=== PATIENT | female | born 1965 | race Caucasian/White ===

== ENCOUNTER 2018-04-27 16:39 | Emergency (ER) | payer BC, OTHER ==
[~2018-04-27] VITALS: Ht 171.4 cm; Wt 92.7 kg
[~2018-04-27 16:39] MED LIST: LEVO125T5 PO; NAPR-514 PO; TRAM50TA PO
[2018-04-27] MEDS ORDERED: ASPIRIN 81 MG TAB.CHEW PO ONE (17:15)
[2018-04-27 17:30] LABS: BASO # 0.1 x10^3/uL (0.0-0.2); BASO % 1 % (0-3); EOS # 0.2 x10^3/uL (0.0-0.7); EOS % 3 % (0-3); HEMATOCRIT 41.9 % (36.0-47.0); HEMOGLOBIN 13.8 g/dL (12.0-15.5); LYMPH # 1.4 x10^3/uL (1.0-4.8); LYMPH % 22 % (24-48); MEAN CORPUSCULAR HEMOGLOBIN 28 pg (25-35); MEAN CORPUSCULAR HGB CONC 33 g/dL (31-37); MEAN CORPUSCULAR VOLUME 84 fL (79-100); MONO # 0.5 x10^3/uL (0.0-1.1); MONO % 9 % (0-9); NEUT # 4.1 x10^3uL (1.8-7.7); NEUT % 66 % (31-73); PLATELET COUNT 278 x10^3/uL (140-400); RED BLOOD COUNT 4.98 x10^6/uL (3.50-5.40); RED CELL DISTRIBUTION WIDTH 13.4 % (11.5-14.5); WHITE BLOOD COUNT 6.3 x10^3/uL (4.0-11.0)
--- NOTE | 2018-04-27 17:30 | PHYS DOC ---
Past History Past Medical History: Hypothyroid, Other Past Surgical History: , Other Alcohol Use: Rarely Drug Use: None Adult General Chief Complaint Chief Complaint: CHEST PAIN HPI HPI Patient is a 53 year old female who presents with complaining of sudden onset of chest pain at 1550 while she was sitting at her desk as a sharp pain and rated her pain 8/10. Patient complaining of shortness of breath, dizziness and near syncope and states the pain lasts about 5 minutes. Patient complaining of lower back pain after dissolving the chest pain as a mild pain and rated her pain 2-3. Patient states she had another episode of the same pain within her thyroid test was very abnormal and had inpatient hospitalization at [facility] for treatment of thyroid disease. Patient had family history of coronary artery disease and denies hypertension, dyslipidemia, diabetes mellitus , smoking, cardiac problem. Review of Systems Review of Systems Constitutional: Denies fever or chills [] Eyes: Denies change in visual acuity, redness, or eye pain [] HENT: Denies nasal congestion or sore throat [] Respiratory: Denies cough, reports shortness of breath [] Cardiovascular: No additional information not addressed in HPI [] GI: Denies abdominal pain, nausea, vomiting, bloody stools or diarrhea [] : Denies dysuria or hematuria [] Musculoskeletal: Denies back pain or joint pain [] Integument: Denies rash or skin lesions [] Neurologic: Denies headache, focal weakness or sensory changes [] Endocrine: Denies polyuria or polydipsia [] All other systems were reviewed and found to be within normal limits, except as documented in this note. Current Medications Current Medications Current Medications Medications (Trade) Dose Ordered Sig/[facility] Start Time Stop Time Status Last Admin Dose Admin Aspirin (Children'S Aspirin) 324 mg 1X ONCE 04/27/18 17:15 04/27/18 17:16 DC Allergies Allergies Allergies Coded Allergies Type Severity Reaction Last Updated Verified No Known Drug Allergies 07/02/15 No Physical Exam Physical Exam Constitutional: Well developed, well nourished, mild distress, non-toxic appearance. [] HENT: Normocephalic, atraumatic, oropharynx moist, no oral exudates, nose normal. [] Eyes: PERRLA, EOMI, conjunctiva normal, no discharge. [] Neck: Normal range of motion, no tenderness, supple, no stridor. [] Cardiovascular:Heart rate regular rhythm, no murmur [] Lungs & Thorax: Bilateral breath sounds clear to auscultation [] Abdomen: Bowel sounds normal, soft, no tenderness, no masses, no pulsatile masses. [] Skin: Warm, dry, no erythema, no rash. [] Back: No tenderness, no CVA tenderness. [] Extremities: No tenderness, no cyanosis, no clubbing, ROM intact, no edema. [] Neurologic: Alert and oriented X 3, normal motor function, normal sensory function, no focal deficits noted. [] Psychologic: Affect normal, judgement normal, mood normal. [] Current Patient Data Vital Signs Vital Signs Date Time Temp Pulse Resp B/P (MAP) Pulse Ox O2 Delivery O2 Flow Rate FiO2 04/27/18 16:57 98.0 73 18 98 Room Air EKG EKG EKG interpreted by me. EKG at 1650 showed normal sinus rhythm at rate of 64, no acute ST and T-wave abnormalities Radiology/Procedures Radiology/Procedures [] Course & Med Decision Making Course & Med Decision Making Pertinent Labs and Imaging studies reviewed. Evaluation of patient in ER showed 53-year-old female patient with complaining of sudden onset of substernal sharp chest pain that last about 5 minutes and low back pain after her chest pain was started. Patient had unremarkable EKG and physical exam. Patient did not want pain medication in ER and aspirin was given. Patient denies chest pain while she was in ER. Patient had unremarkable labs except for very mild elevation of d-dimer without his factor for PE. Patient did not have cardiac risk factor and instructed to follow-up with her primary care physician for further evaluation. Plan discharge patient home to diagnose of noncardiac chest pain. See Dr. Marrero note. Pt. discharged at shift change. Did not see this pt. . Marisaon Disclaimer Marisaon Disclaimer This electronic medical record was generated, in whole or in part, using a voice recognition dictation system. Departure Departure: Impression: Primary Impression: Acute chest pain Additional Impression: Low back pain Disposition: HOME, SELF-CARE (at 1800) Condition: IMPROVED Referrals: ALEJA GUNTER MD (PCP) Patient Instructions: Chest Pain (Nonspecific) Additional Instructions: Drink plenty of liquids Follow-up with your primary care physician in 2-3 days Return to ER if not getting better Problem Qualifiers PRIMO MARRERO MD Apr 27, 2018 17:30 JODEE IZAGUIRRE MD Apr 27, 2018 20:06
[2018-04-27 17:32] VITALS: BP 127/78
--- NOTE | 2018-04-27 17:33 | RAD ---
CHEST PA LATERAL History: CHEST PAIN TODAY Comparison: Outside facility exam March 02, 2013 Findings: 2 views of the chest are submitted. There is no infiltrate, pneumothorax, or effusion. The cardiac silhouette is within normal limits in size. The trachea is in the midline. No acute osseous abnormality is identified. Impression: 1. There is no radiographic evidence of acute cardiopulmonary disease. Electronically signed by: Kai Monson MD (04/27/2018 5:30 PM) [email or web address]
[2018-04-27 17:50] LABS: ALBUMIN 4.1 g/dL (3.4-5.0); ALBUMIN/GLOBULIN RATIO 1.3 (1.0-1.7); CALCIUM 8.9 mg/dL (8.5-10.1); CREATININE 0.7 mg/dL (0.6-1.0); GFR 87.5; POTASSIUM 3.7 mmol/L (3.5-5.1); TOTAL BILIRUBIN 0.5 mg/dL (0.2-1.0); TOTAL PROTEIN 7.2 g/dL (6.4-8.2)
== END 2018-04-27 18:14 | disposition home or self-care (01) ==
LOC: ER 16:39
DX: R07.89 Other chest pain (principal); M54.5 Low back pain; R55 Syncope and collapse; E03.9 Hypothyroidism, unspecified
CPT/HCPCS: 36415; 71046; 80053; 82550; 83690; 83880; 84443; 84484; 85025; 85379; 85610; 99285

== ENCOUNTER → 2019-07-14 | Outpatient (CLI) | payer BC ==
[2019-07-14 18:46] LABS: BASO # 0.1 x10^3/uL (0.0-0.2); BASO % 1 % (0-3); EOS # 0.2 x10^3/uL (0.0-0.7); EOS % 3 % (0-3); HEMATOCRIT 43.4 % (36.0-47.0); HEMOGLOBIN 14.2 g/dL (12.0-15.5); LYMPH # 1.8 x10^3/uL (1.0-4.8); LYMPH % 24 % (24-48); MEAN CORPUSCULAR HEMOGLOBIN 28 pg (25-35); MEAN CORPUSCULAR HGB CONC 33 g/dL (31-37); MEAN CORPUSCULAR VOLUME 84 fL (79-100); MONO # 0.6 x10^3/uL (0.0-1.1); MONO % 8 % (0-9); NEUT # 4.6 x10^3uL (1.8-7.7); NEUT % 63 % (31-73); PLATELET COUNT 293 x10^3/uL (140-400); RED BLOOD COUNT 5.16 x10^6/uL (3.50-5.40); RED CELL DISTRIBUTION WIDTH 13.7 % (11.5-14.5); WHITE BLOOD COUNT 7.3 x10^3/uL (4.0-11.0)
[2019-07-14 18:50] LABS: ALBUMIN 4.1 g/dL (3.4-5.0); ALBUMIN/GLOBULIN RATIO 1.2 (1.0-1.7); CREATININE 0.7 mg/dL (0.6-1.0); GFR 87.2; POTASSIUM 4.2 mmol/L (3.5-5.1); TOTAL BILIRUBIN 0.3 mg/dL (0.2-1.0); TOTAL PROTEIN 7.5 g/dL (6.4-8.2)
--- NOTE | 2019-07-14 21:05 | RAD ---
CHEST PA LATERAL History: Shortness of breath Comparison: 04/27/2018 two-view chest x-ray exam. Findings: Frontal and lateral views of chest were obtained. The cardiomediastinal silhouette is normal. Pulmonary vasculature is normal. The lungs are clear. No pleural effusion or pneumothorax is seen. There is no acute bone abnormality. IMPRESSION: No acute cardiopulmonary process. Electronically signed by: Emiliano Clark MD (07/14/2019 9:02 PM) [id number]
[2019-07-15 10:45] LABS: FREE T4 0.81 ng/dL (0.76-1.46); THYROID STIM HORMONE (TSH) 0.707 uIU/mL (0.358-3.740)
== END | disposition home or self-care (01) ==
LOC: RAD 17:55
PROVIDERS: ATTEND Family Medicine
DX: R06.02 Shortness of breath (principal)
CPT/HCPCS: 36415; 71046; 80053; 83880; 84439; 84443; 85025; 85379

== ENCOUNTER 2021-02-04 15:15 | Emergency (ER) | payer BC, OTHER ==
[~2021-02-04] VITALS: Ht 170.2 cm; Wt 98.0 kg
[2021-02-04 15:58] VITALS: BP 134/83
--- NOTE | 2021-02-04 17:33 | PHYS DOC ---
Past History Past Medical History: Hypothyroid, Other Past Surgical History: , Tonsillectomy, Other Alcohol Use: Rarely Drug Use: None Adult General Chief Complaint Chief Complaint: LACERATION/AVULSION HPI HPI Patient is a healthy 56-year-old female presenting for right thumb laceration. Reports onset was approximately 6 hours prior to arrival while at work. 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 Patient applied pressure but reports that throughout the day it kept opening up and he started bleeding finally causing her to come in for evaluation. Tetanus is up-to-date, she is not on any blood thinners Review of Systems Review of Systems Fourteen body systems of review of systems have been reviewed. See HPI for pertinent positives and negative responses, other pineda all other systems are negative, non-pertinent or non-contributory Allergies Allergies Allergies Coded Allergies Type Severity Reaction Last Updated Verified naproxen Allergy Unknown Nausea 02/04/21 Yes Physical Exam Physical Exam Constitutional: Well developed, well nourished, no acute distress, non-toxic appearance. HENT: Normocephalic, atraumatic, bilateral external ears normal, oropharynx moist, no oral exudates, nose normal. Eyes: PERRLA, EOMI, conjunctiva normal, no discharge. Neck: Normal range of motion, no tenderness, supple, no stridor. Cardiovascular: Heart rate regular per monitor Lungs & Thorax: No respiratory distress or accessory muscle use, bilateral chest rise Abdomen: Abdomen soft, non-tender, bowel sounds present in all quadrants, no guarding or rebound, nonacute abdomen. Skin: Warm, dry, no erythema, no rash. Simple laceration present to dorsal base of right thumb not involving any subcutaneous tissue or passing dermis, no foreign body Back: No tenderness, no CVA tenderness. Extremities: No tenderness, no cyanosis, no clubbing, ROM intact, no edema. Neurologic: Alert and oriented X 3, median/ulnar/radial nerves intact, normal motor & sensory function, no focal deficits noted. Psychologic: Affect normal, judgement normal, mood normal. Current Patient Data Vital Signs Vital Signs Date Time Temp Pulse Resp B/P (MAP) Pulse Ox O2 Delivery O2 Flow Rate FiO2 02/04/21 15:58 98.1 69 16 134/83 97 Room Air EKG EKG [] Radiology/Procedures Radiology/Procedures [] Heart Score C/O Chest Pain: No Risk Factors: Risk Factors: DM, Current or recent (<one month) smoker, HTN, HLP, family history of CAD, obesity. Risk Scores: Risk Factors: DM, Current or recent (<one month) smoker, HTN, HLP, family history of CAD, obesity. Course & Med Decision Making Course & Med Decision Making Simple laceration present to finger. Discussed all treatment modalities but joint decision made to use Dermabond. This was applied with satisfactory wound closure. Wound/skin hygiene and close PCP follow-up advised Claudette Disclaimer Claudette Disclaimer This electronic medical record was generated, in whole or in part, using a voice recognition dictation system. Departure Departure: Impression: Primary Impression: Laceration of thumb without complication Disposition: 01 HOME / SELF CARE / HOMELESS Condition: STABLE Referrals: ALEJA GUNTER MD (PCP) Patient Instructions: Laceration Care, Adult Additional Instructions: You were seen for a laceration. Keep the area clean and dry. Your injury was superficial in nature and so, it was repaired with glue and Steri-Strips. Please keep area clean and dry for upcoming 48 hours at which time you can remove the Steri-Strips or let them fall off on their own. Good hand and wound hygiene is advised, I recommend washing your hands with warm soap and water numerous times daily. Return to the ED immediately if you develop any signs of infection like increased pain, redness, fever, or purulent (pus) drainage. PEREZ RODRIGUES DO Feb 04, 2021 17:33
== END 2021-02-04 17:35 | disposition home or self-care (01) ==
LOC: ER 15:15
DX: S61.011A Laceration without foreign body of right thumb without damage to nail, initial encounter (principal); E03.9 Hypothyroidism, unspecified; Z88.6 Allergy status to analgesic agent; W26.8XXA Contact with other sharp object(s), not elsewhere classified, initial encounter; Y93.89 Activity, other specified; Y92.89 Other specified places as the place of occurrence of the external cause; Y99.8 Other external cause status
CPT/HCPCS: 12001; 99282

== ENCOUNTER 2021-06-03 14:21 | Emergency (ER) | payer OTHER ==
[~2021-06-03] VITALS: Ht 170.2 cm; Wt 94.3 kg
[2021-06-03] MEDS ORDERED: ASPIRIN CHEWABLE 81 MG TABLET. ONE (15:04)
[2021-06-03] MEDS ORDERED: ORPHENADRINE CITRATE 60 MG/2 ML VIAL. IM ONE (15:15)
[2021-06-03] MEDS ORDERED: KETOROLAC 60 MG/2 ML VIAL. IM ONE (15:15)
--- NOTE | 2021-06-03 15:18 | PHYS DOC ---
Past History Past Medical History: Hypothyroid, Other (YANICK OSUNA APRN) Past Surgical History: , Tonsillectomy, Other Additional Past Surgical Histo: lens replacement; left foot; ectopic preg (YANICK OSUNA APRN) Alcohol Use: Rarely Drug Use: None (YANICK OSUNA APRN) General Adult EDM: Chief Complaint: MECHANICAL FALL HPI: HPI: Patient is a 56-year-old female who presents to the emergency department for low back pain following an injury. Patient reports that she fell on the stairs on Wednesday at work. She denies getting dizzy prior to fall. Patient is reporting bilateral low back pain that radiates down her right lower back and into her buttock and down her leg. Patient rates her pain 8 out of 10. She denies hitting her head or loss of consciousness, loss of bowel or bladder, saddle anesthesias. (YANICK OSUNA APRN) Review of Systems: Review of Systems: HENT: See HPI GI: See HPI : HPI Musculoskeletal: HPI Neurologic: HPI (YANICK OSUNA APRN) Current Medications: Current Meds: Current Medications Medications (Trade) Dose Ordered Sig/Bob Start Time Stop Time Status Last Admin Dose Admin Aspirin (Aspirin Chewable) 81 mg STK-MED ONCE 06/03/21 15:04 06/03/21 15:04 DC Ketorolac Tromethamine (Toradol Im) 60 mg 1X ONCE 06/03/21 15:15 06/03/21 15:16 Orphenadrine Citrate (Norflex) 60 mg 1X ONCE 06/03/21 15:15 06/03/21 15:16 (YANICK OSUNA APRN) Allergies: Allergies: Allergies Coded Allergies Type Severity Reaction Last Updated Verified naproxen Allergy Unknown Nausea 06/03/21 Yes (YANICK OSUNA APRN) Physical Exam: PE: Constitutional: Well developed, well nourished, no acute distress, non-toxic appearance. [] HENT: Normocephalic, atraumatic, bilateral external ears normal, oropharynx moist, no oral exudates, nose normal. [] Eyes: PERRL, EOMI, conjunctiva normal, no discharge. [] Neck: Normal range of motion, no bony spinal tenderness, no step-offs or deformities, supple, no stridor. [] Cardiovascular:Heart rate regular rhythm, no murmur [] Lungs & Thorax: Bilateral breath sounds clear to auscultation [] Abdomen: Bowel sounds normal, soft, no tenderness, no masses, no pulsatile masses. [] Skin: Warm, dry, no erythema, no rash. [] Back: No bony spinal tenderness, normal range of motion, bilateral paraspinal lumbar tenderness with palpation, positive right straight leg raise Extremities: No tenderness, no cyanosis, no clubbing, ROM intact, no edema. [] Neurologic: Alert and oriented X 3, normal motor function, normal sensory function, no focal deficits noted. [] Psychologic: Affect normal, judgement normal, mood normal. [] (YANICK OSUNA APRN) Current Patient Data: Vital Signs: Vital Signs Date Time Temp Pulse Resp B/P (MAP) Pulse Ox O2 Delivery O2 Flow Rate FiO2 06/03/21 14:29 97.7 60 18 152/94 (113) 96 Room Air (YANICK OSUNA APRN) EKG: EKG: [] (YANICK OSUNA APRN) Radiology/Procedures: Radiology/Procedures: []PROCEDURE: CT LUMBAR SPINE WO CONTRAST EXAM: Lumbar spine CT without contrast. HISTORY: Pain. TECHNIQUE: Computed tomographic images of the lumbar spine were obtained without contrast. Multiplanar reformatting was performed. *One or more of the following individualized dose reduction techniques were utilized for this examination: 1. Automated exposure control. 2. Adjustment of the mA and/or kV according to patient size. 3. Use of iterative reconstruction technique. COMPARISON: None. FINDINGS: There is no significant listhesis. The vertebral bodies are normal in height. There are multiple small thoracic and lumbar endplate Schmorl's nodes. There is multilevel endplate remodeling. There is no fracture or suspicious osseous lesion. There is a small incidental hemangioma within L3. There is a simple left renal parapelvic cyst. Follow-up is not routinely performed for simple cysts. There is a 1.6 cm right adrenal nodule. There is degenerative subchondral sclerosis and spurring involving the sacroiliac joints. At L1-L2, there is no stenosis. At L2-L3, there is mild bilateral facet arthropathy. There is no stenosis. At L3-L4, there is moderate bilateral facet arthropathy. There is no stenosis. At L4-L5, there is severe bilateral facet arthropathy. There is mild central canal stenosis. At L5-S1, there is severe bilateral facet arthropathy. There is mild superior right foraminal stenosis. IMPRESSION: 1. Multilevel degenerative change involving the lumbar spine, described in detail above. 2. No acute osseous finding. 3. 1.6 cm right adrenal nodule, the appearance of which favors an adenoma. 4. Simple left renal parapelvic cyst. Electronically signed by: Bethany Garrison MD (06/03/2021 3:43 PM) [id number] DICTATED AND SIGNED BY: BETHANY GARRISON MD DATE: 06/03/21 1526 CC: ALEJA GUNTER MD; YANICK OSUNA APRN ~MTH0 0 (YANICK OSUNA APRN) Heart Score: C/O Chest Pain: N/A Risk Factors: Risk Factors: DM, Current or recent (<one month) smoker, HTN, HLP, family history of CAD, obesity. Risk Scores: Score 0 - 3: 2.5% MACE over next 6 weeks - Discharge Home Score 4 - 6: 20.3% MACE over next 6 weeks - Admit for Clinical Observation Score 7 - 10: 72.7% MACE over next 6 weeks - Early Invasive Strategies (YANICK OSUNA APRN) Course & Med Decision Making: Course & Med Decision Making Pertinent Labs and Imaging studies reviewed. (See chart for details) [] Patient presents to the emergency department for low back pain. It does radiate down her right leg. Patient had a positive right straight leg raise. Imaging performed of patient's lumbar spine that showed no acute findings. Patient was treated in the emergency department with anti-inflammatory and a muscle relaxer injection. Patient reports that she tolerates NSAIDs although she has an allergy to naproxen. Patient will be advised to take ibuprofen and muscle relaxers. Patient given cautionary instructions regarding muscle relaxers. I discussed with patient all findings and diagnostic testing as well as the need to follow-up with PCP for further evaluation and treatment or return to the ER if any new or worsening symptoms. Strict return precautions were also discussed at length. Patient voiced understanding and agreement with the plan. Patient is hemodynamically stable at the time of disposition. (YANICK OSUNA APRN) Dragon Disclaimer: Dragon Disclaimer: This electronic medical record was generated, in whole or in part, using a voice recognition dictation system. (YANICK OSUNA APRN) Attending Co-Sign The patient was seen and interviewed as well as examined at the bedside. The chart was reviewed. The case was discussed. Agree with the plan of care. (ANTONIO RODGERS DO) Departure Departure: Impression: Primary Impression: Back pain Qualified Codes: M54.41 - Lumbago with sciatica, right side Disposition: HOME / SELF CARE / HOMELESS Condition: GOOD Referrals: ALEJA GUNTER MD (PCP) Patient Instructions: Back Pain, Adult, Sciatica, [id number] Additional Instructions: You were seen in the emergency department for low back pain. Imaging was performed of your lumbar spine that showed no acute findings. You were treated in the emergency department with anti-inflammatory muscle relaxer injection. At home continue to take anti-inflammatory medications like ibuprofen. You are also being discharged home with a muscle relaxer. Take that as needed. This medication may cause sedation so do not take any need to be alert, driving a vehicle or with alcohol. Please follow-up with your primary care provider tomorrow regarding your ER visit. Please return to the emergency department if you develop worsening of your pain, inability to walk, loss of bowel or bladder, numbness or tingling in your groin. Scripts Cyclobenzaprine Hcl (CYCLOBENZAPRINE HCL) 5 Mg Tablet 1 TAB PO TID for back pain for 7 Days, #21 TAB 0 Refills Prov: YANICK OSUNA APRN 06/03/21 YANICK OSUNA APRN Jun 03, 2021 15:18 ANTONIO RODGERS DO Jun 04, 2021 11:45
--- NOTE | 2021-06-03 15:45 | RAD ---
EXAM: Lumbar spine CT without contrast. HISTORY: Pain. TECHNIQUE: Computed tomographic images of the lumbar spine were obtained without contrast. Multiplana r reformatting was performed. *One or more of the following individualized dose reduction techniques were utilized for this examina tion: 1. Automated exposure control. 2. Adjustment of the mA and/or kV according to patient size. 3. Use of iterative reconstruction technique. COMPARISON: None. FINDINGS: There is no significant listhesis. The vertebral bodies are normal in height. There are mul tiple small thoracic and lumbar endplate Schmorl's nodes. There is multilevel endplate remodeling. Th ere is no fracture or suspicious osseous lesion. There is a small incidental hemangioma within L3. Th ere is a simple left renal parapelvic cyst. Follow-up is not routinely performed for simple cysts. Th ere is a 1.6 cm right adrenal nodule. There is degenerative subchondral sclerosis and spurring involv ing the sacroiliac joints. At L1-L2, there is no stenosis. At L2-L3, there is mild bilateral facet arthropathy. There is no stenosis. At L3-L4, there is moderate bilateral facet arthropathy. There is no stenosis. At L4-L5, there is severe bilateral facet arthropathy. There is mild central canal stenosis. At L5-S1, there is severe bilateral facet arthropathy. There is mild superior right foraminal stenosi s. IMPRESSION: 1. Multilevel degenerative change involving the lumbar spine, described in detail above. 2. No acute osseous finding. 3. 1.6 cm right adrenal nodule, the appearance of which favors an adenoma. 4. Simple left renal parapelvic cyst. Electronically signed by: Bethany Delgado MD (06/03/2021 3:43 PM) [id number]
[2021-06-03] MEDS ORDERED: CYCL5TAB PO (15:54)
[2021-06-03 15:55] VITALS: BP 139/83
== END 2021-06-03 16:05 | disposition home or self-care (01) ==
LOC: ER 14:21
DX: M54.41 Lumbago with sciatica, right side (principal); E03.9 Hypothyroidism, unspecified; G89.11 Acute pain due to trauma; Z88.5 Allergy status to narcotic agent; W10.8XXA Fall (on) (from) other stairs and steps, initial encounter; Y93.89 Activity, other specified; Y92.69 Other specified industrial and construction area as the place of occurrence of the external cause; Y99.0 Civilian activity done for income or pay
CPT/HCPCS: 72131; 96372; 99284; J1885

== ENCOUNTER 2021-08-14 14:51 | Emergency (ER) | payer BC, OTHER ==
[~2021-08-14] VITALS: Ht 170.2 cm; Wt 99.2 kg
[~2021-08-14 14:51] MED LIST changes: +CYCL5TAB PO
--- NOTE | 2021-08-14 15:26 | PHYS DOC ---
Past History Past Medical History: Hypothyroid, Other Past Surgical History: , Tonsillectomy, Other Additional Past Surgical Histo: lens replacement; left foot; ectopic preg Alcohol Use: Rarely Drug Use: None Adult General Chief Complaint Chief Complaint: VISION PROBLEM HPI HPI Patient is a 56-year-old female presenting via EMS for multiple symptoms. Reports she has history of low thyroid only for which she takes [place] Thyroid and has been compliant with all medications. 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 Reports after standing up she sat down and stayed there as symptoms felt like they were ongoing for approximately 5 to 10 minutes. While seated, she called nurse who eventually came and evaluated her. At that time, patient reports her symptoms had nearly resolved but there was question about if patient was speaking slower than usual prompting EMS to be called. On arrival, patient asymptomatic. Nonetheless, patient was transported to our facility for further evaluation. On arrival, patient complains of continued headache that is worse behind left eye and generalized fatigue. Review of Systems Review of Systems Fourteen body systems of review of systems have been reviewed. See HPI for pertinent positives and negative responses, other pineda all other systems are negative, non-pertinent or non-contributory Allergies Allergies Allergies Coded Allergies Type Severity Reaction Last Updated Verified naproxen Allergy Unknown Nausea 06/03/21 Yes Physical Exam Physical Exam General: Appears well, non toxic, and comfortable Skin: Warm, dry. Normal for ethnicity. HEENT: Atraumatic. PERRLA. Moist mucous membranes. Neck: Trachea midline. Normal ROM. No meningeal signs and/or nuchal rigidity Respiratory: Normal WOB. CTAB w/o w/r/r. No tachypnea. Cardiovascular: Regular rate and rhythm. Normal peripheral perfusion. No edema. Abdomen: Soft. Non tender. No distension. Back: Normal ROM. Musculoskeletal: No swelling or deformity. Neuro: Alert and oriented x 4. MAEE. GCS 15. Normal FNF. Negative pronator drift. Normal heel to adame. Normal Radha. CN II-XII intact. Normal strength and sensation. Normal speech. Psych: Anxious affect and mood Current Patient Data Vital Signs Vital Signs Date Time Temp Pulse Resp B/P (MAP) Pulse Ox O2 Delivery O2 Flow Rate FiO2 08/14/21 14:57 98.3 75 16 168/84 (112) 100 Room Air Lab Results Laboratory Tests Test 08/14/21 15:06 White Blood Count 5.6 x10^3/uL Red Blood Count 4.67 x10^6/uL Hemoglobin 13.1 g/dL Hematocrit 40.0 % Mean Corpuscular Volume 86 fL Mean Corpuscular Hemoglobin 28 pg Mean Corpuscular Hemoglobin Concent 33 g/dL Red Cell Distribution Width 14.0 % Platelet Count 260 x10^3/uL Neutrophils (%) (Auto) 59 % Lymphocytes (%) (Auto) 26 % Monocytes (%) (Auto) 10 % Eosinophils (%) (Auto) 4 % Basophils (%) (Auto) 1 % Neutrophils # (Auto) 3.3 x10^3uL Lymphocytes # (Auto) 1.4 x10^3/uL Monocytes # (Auto) 0.5 x10^3/uL Eosinophils # (Auto) 0.2 x10^3/uL Basophils # (Auto) 0.1 x10^3/uL Sodium Level 141 mmol/L Potassium Level 3.9 mmol/L Chloride Level 104 mmol/L Carbon Dioxide Level 27 mmol/L Anion Gap 10 Blood Urea Nitrogen 13 mg/dL Creatinine 0.6 mg/dL Estimated GFR (Cockcroft-Gault) 103.4 Glucose Level 102 mg/dL Calcium Level 8.9 mg/dL Troponin I High Sensitivity 6 ng/L Current Medications Medications (Trade) Dose Ordered Sig/Bob Route PRN Reason Start Time Stop Time Status Last Admin Dose Admin Iohexol (Omnipaque 350 Mg/ml) 100 ml 1X ONCE IV 08/14/21 15:30 08/14/21 15:33 DC 08/14/21 15:40 EKG EKG EKG ordered and interpreted by myself at 1600 hrs. is sinus rhythm at 68 bpm, unremarkable intervals, no axis deviation, no acute ischemic findings, no STEMI Radiology/Procedures Radiology/Procedures CT head without contrast dated 08/14/2021 3:52 PM Comparison: None CLINICAL INDICATION: Dizziness and right eye pain. Slurred speech. TECHNIQUE: Contiguous axial imaging of the head was performed from skull base to vertex. One or more of the following individualized dose reduction techniques were utilized for this examination: 1. Automated exposure control 2. Adjustment of the mA and/or kV according to patient size 3. Use of iterative reconstruction technique. FINDINGS: Ventricles and sulci are within normal limits for age. No midline shift or mass effect. Brain parenchyma is of normal attenuation. No hemorrhage or extra-axial collection. Posterior fossa and brainstem unremarkable. Visualized paranasal sinuses and mastoid air cells are clear. No apparent calvarial abnormality. IMPRESSION: No evidence of acute intracranial abnormality. Electronically signed by: Jeremi Ny MD (08/14/2021 3:53 PM) [facility] ///////////////////// CTA head CTA HEAD AND NECK W/WO CONTRAST History: DIZZINESS, RT EYE PAIN, SLURRED SPEECH Technique: After bolus of intravenous contrast, volumetric CT data acquisition was acquired of the head and neck. Multiplanar reconstruction images to include MIP and 3-D reconstruction images are submitted. Any determination of stenosis is based on NASCET criteria. Comparison: CT head 08/14/21. Findings: Angiogram neck: Aortic arch: Normal caliber three-vessel arch. Common carotid arteries: No stenosis, occlusion or dissection. Internal carotid arteries: No stenosis, occlusion or dissection. External carotid arteries: Patent Vertebral arteries: No stenosis, occlusion or dissection. Angiogram head: ICA: No stenosis, occlusion or aneurysm. MCA: No stenosis, occlusion or aneurysm. SUNG: No stenosis, occlusion or aneurysm. EDUCATION PARAPROFESSIONAL: No stenosis, occlusion or aneurysm. Basilar artery: No stenosis, occlusion or aneurysm. Distal vertebral arteries: No stenosis, occlusion or aneurysm. Other: Imaged lung apices are unremarkable. Soft tissues appear normal. No pathologic osseous lesions. Impression: 1. No significant arterial stenosis, occlusion or aneurysm within the head or neck. Heart Score C/O Chest Pain: No Risk Factors: Risk Factors: DM, Current or recent (<one month) smoker, HTN, HLP, family history of CAD, obesity. Risk Scores: Risk Factors: DM, Current or recent (<one month) smoker, HTN, HLP, family history of CAD, obesity. Course & Med Decision Making Course & Med Decision Making ABCs unremarkable HPI physical exam comprehensive ER work-up nonconcerning for any emergent or s urgical issues. NIH stroke scale 0. Patient asymptomatic with no recurrence of symptoms throughout entirety of ER visit. Headache improving. Disclose this might be an acute presentation more concerning pathology which patient is aware of but reassured there is no active bleed and/or obvious aneurysm or clot Discussed most likely etiology of patient's presenting symptoms today to be vasovagal episode from changing from a seated to standing position versus headache with atypical features Ultimately, joint decision made to discharge home with continued supportive care practices, PCP follow-up with repeat evaluation and consideration for echocardiogram and other potential subspecialist consultation such as neurology Claudette Disclaimer Claudette Disclaimer This electronic medical record was generated, in whole or in part, using a voice recognition dictation system. NIH Stroke Scale: NIH Stroke Scale Response (Comments) Value Level of Consciousness: 0 Alert/Responsive 0 LOC Questions: 0 Answers both correctly 0 LOC Commands: 0 Performs both tasks 0 Best Gaze: 0 Normal 0 Visual: 0 No visual loss 0 Facial Palsy: 0 Normal, symmetrical 0 Motor - Left Arm 0 No drift 0 Motor - Right Arm 0 No drift 0 Motor - Left Leg 0 No drift 0 Motor: Right Leg 0 No drift 0 Limb Ataxia: 0 Absent 0 Sensory: 0 No loss 0 Best Language: 0 Normal 0 Dysathria: 0 Normal 0 Extinction and Inattention: 0 Normal 0 Total 0 Departure Departure: Impression: Primary Impression: Headache Disposition: HOME / SELF CARE / HOMELESS Condition: STABLE Referrals: ALEJA GUNTER MD (PCP) Additional Instructions: You were seen for a headache with atypical features. The cause of your symptoms is unknown but based on your work-up today there was no obvious emergent or surg ical findings. As disclosed, you should contact your primary care physician for further evaluation and treatment as indicated. You would benefit from outpatient echocardiogram and consideration for neurology consultation. You should return to the ED if you develop worsening pain, vision change, numbness, tingling, weakness, vomiting, fever, neck pain, or any other new or concerning symptoms. PEREZ RODRIGUES DO Aug 14, 2021 15:26
[2021-08-14] MEDS ORDERED: IOHEXOL 350 MG/ML 100 ML VIAL. IV ONE (15:30)
[2021-08-14 15:36] LABS: BASO # 0.1 x10^3/uL (0.0-0.2); BASO % 1 % (0-3); CALCIUM 8.9 mg/dL (8.5-10.1); CREATININE 0.6 mg/dL (0.6-1.0); EOS # 0.2 x10^3/uL (0.0-0.7); EOS % 4 % (0-3); GFR 103.4; HEMOGLOBIN 13.1 g/dL (12.0-15.5); LYMPH # 1.4 x10^3/uL (1.0-4.8); LYMPH % 26 % (24-48); MEAN CORPUSCULAR HEMOGLOBIN 28 pg (25-35); MEAN CORPUSCULAR HGB CONC 33 g/dL (31-37); MEAN CORPUSCULAR VOLUME 86 fL (79-100); MONO # 0.5 x10^3/uL (0.0-1.1); MONO % 10 % (0-9); NEUT # 3.3 x10^3uL (1.8-7.7); NEUT % 59 % (31-73); PLATELET COUNT 260 x10^3/uL (140-400); POTASSIUM 3.9 mmol/L (3.5-5.1); RED BLOOD COUNT 4.67 x10^6/uL (3.50-5.40); WHITE BLOOD COUNT 5.6 x10^3/uL (4.0-11.0)
--- NOTE | 2021-08-14 15:55 | RAD ---
CT head without contrast dated 08/14/2021 3:52 PM Comparison: None CLINICAL INDICATION: Dizziness and right eye pain. Slurred speech. TECHNIQUE: Contiguous axial imaging of the head was performed from skull base to vertex. One or more of the following individualized dose reduction techniques were utilized for this examinat ion: 1. Automated exposure control 2. Adjustment of the mA and/or kV according to patient size 3. Use of iterative reconstruction technique. FINDINGS: Ventricles and sulci are within normal limits for age. No midline shift or mass effect. Brain parench yma is of normal attenuation. No hemorrhage or extra-axial collection. Posterior fossa and brainstem unremarkable. Visualized paranasal sinuses and mastoid air cells are clear. No apparent calvarial abnormality. IMPRESSION: No evidence of acute intracranial abnormality. Electronically signed by: Jeremi Ny MD (08/14/2021 3:53 PM) [facility]
--- NOTE | 2021-08-14 16:09 | EKG ---
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
--- NOTE | 2021-08-14 16:16 | RAD ---
CTA head CTA HEAD AND NECK W/WO CONTRAST History: DIZZINESS, RT EYE PAIN, SLURRED SPEECH Technique: After bolus of intravenous contrast, volumetric CT data acquisition was acquired of the he ad and neck. Multiplanar reconstruction images to include MIP and 3-D reconstruction images are submi tted. Any determination of stenosis is based on NASCET criteria. Comparison: CT head 08/14/21. Findings: Angiogram neck: Aortic arch: Normal caliber three-vessel arch. Common carotid arteries: No stenosis, occlusion or dissection. Internal carotid arteries: No stenosis, occlusion or dissection. External carotid arteries: Patent Vertebral arteries: No stenosis, occlusion or dissection. Angiogram head: ICA: No stenosis, occlusion or aneurysm. MCA: No stenosis, occlusion or aneurysm. SUNG: No stenosis, occlusion or aneurysm. HEATING OPERATORS ENGINEER: No stenosis, occlusion or aneurysm. Basilar artery: No stenosis, occlusion or aneurysm. Distal vertebral arteries: No stenosis, occlusion or aneurysm. Other: Imaged lung apices are unremarkable. Soft tissues appear normal. No pathologic osseous lesions. Impression: 1. No significant arterial stenosis, occlusion or aneurysm within the head or neck. Findings discussed with ER charge nurse at 08/14/2021 4:11 PM. FOR INTERNAL CODING PURPOSES RESULT CODE: (C) Exposure: One or more of the following individualized dose reduction techniques were utilized for thi s examination: 1. Automated exposure control 2. Adjustment of the mA and/or kV according to patient size 3. Use of iterative reconstruction technique. Electronically signed by: Eleno Murphy MD (08/14/2021 4:14 PM) [id number]
--- NOTE | 2021-08-14 16:20 | RAD ---
Exam: Chest one view INDICATION: Dizziness, right eye pain TECHNIQUE: Frontal view of the chest Comparisons: None FINDINGS: The cardiomediastinal silhouette and pulmonary vessels are within normal limits. The lung and pleural spaces are clear. IMPRESSION: No acute cardiopulmonary process. Electronically signed by: Baljit Soria MD (08/14/2021 4:17 PM) [facility]
[2021-08-14 16:39] VITALS: BP 143/79
== END 2021-08-14 16:50 | disposition home or self-care (01) ==
LOC: ER 14:51
DX: R51.9 Headache, unspecified (principal); R11.2 Nausea with vomiting, unspecified; R42 Dizziness and giddiness; E03.9 Hypothyroidism, unspecified; Z88.6 Allergy status to analgesic agent
CPT/HCPCS: 36415; 70450; 70496; 70498; 71045; 80048; 84484; 85025; 93005; 99285; Q9967